=== PATIENT | male | born 1980 | race Caucasian/White ===

== ENCOUNTER 2018-07-21 16:21 | Emergency (ER) | payer OTHER ==
[~2018-07-21] VITALS: Ht 172 cm; Wt 91.6 kg
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
--- NOTE | 2018-07-21 16:51 | NUR ---
ED Nurse Note: pt family requesting pain meds, aware awaiting md williamson
[2018-07-21] MEDS ORDERED: Morphine Sulfate 4mg/ml Inj (IV USE ONLY) IVP ONE ×2 (17:15→18:30)
--- NOTE | 2018-07-21 17:38 | NUR ---
ED Nurse Note: pt with meds given prior to xrays being done at [facility]. labs sent to be held in lab dept. pt tolerates well
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
[2018-07-21] MEDS ORDERED: Bacitracin Oint UD TOPIC ONE ×2 (18:26→18:45)
[2018-07-21 18:28] VITALS: BP 127/73
--- NOTE | 2018-07-21 18:38 | Diagnostic Imaging Report ---
History: PAIN Exam: XR LEFT FOREARM 2 views Comparison: None available FINDINGS: Comminuted displaced impacted intra-articular distal radius fracture with significant-appearing angulation and associated soft tissue deformity. Mild displaced appearing distal ulnar fracture. IMPRESSION: Comminuted displaced impacted intra-articular distal radius fracture with significant-appearing angulation and associated soft tissue deformity. Mild displaced appearing distal ulnar fracture.
--- NOTE | 2018-07-21 18:40 | Diagnostic Imaging Report ---
History: PAIN Exam: XR CXR 1 VIEW Comparison: None available FINDINGS: The lungs are clear. The cardiac and mediastinal contours appear within limits. The visualized osseous structures appear within limits. IMPRESSION: No evidence of acute traumatic injury.
--- NOTE | 2018-07-21 18:56 | NUR ---
ED Nurse Note: pt having repeat xray after splint applied by . good cms remains, pt tolerating well. xraycopies requested or pt to take upon dc home.
[2018-07-21] MEDS ORDERED: IBUPROFEN600 MG ORAL (18:58)
[2018-07-21] MEDS ORDERED: NORCO 5-325 TA1 EACH ORAL (18:58)
--- NOTE | 2018-07-21 19:08 | NUR ---
ED Nurse Note: pt noted to have abrasion to right elbow area also. cleansed and wrapped by medicaid analyst.
[2018-07-21 19:22] VITALS: BP 113/68
--- NOTE | 2018-07-21 19:25 | NUR ---
ER DISCHARGE NOTE: Patient is cleared to be discharged per ERMD, pt is aox4, on room air, with stable vital signs. pt was given dc and prescription instructions, pt was able to verbalize understanding, pt id band and iv site removed without complications. pt is able to ambulate with steady gait. pt took all belongings. pt right elbow and toe dressed. pt left arm splinted and put on sling.
--- NOTE | 2018-07-21 20:26 | Diagnostic Imaging Report ---
EXAM: XR Left Forearm, 2 Views CLINICAL HISTORY: POST-OP TECHNIQUE: Frontal and lateral views of the left forearm. COMPARISON: No relevant prior studies available. FINDINGS: Limitations: Cast material limits evaluation of fine bony detail. Bones/joints: Improved alignment of a comminuted distal radial fracture. Similar alignment of a distal left ulnar metaphyseal fracture. Soft tissues: Diffuse edema. IMPRESSION: Improved alignment of a comminuted distal radial fracture. Similar alignment of a distal left ulnar metaphyseal fracture.
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
== END 2018-07-21 19:25 | disposition home or self-care (01) ==
LOC: EMR 18:00
DX: S52.502A Unspecified fracture of the lower end of left radius, initial encounter for closed fracture (principal); S52.602A Unspecified fracture of lower end of left ulna, initial encounter for closed fracture; M79.602 Pain in left arm; M25.571 Pain in right ankle and joints of right foot; M25.521 Pain in right elbow; S40.812A Abrasion of left upper arm, initial encounter; V19.9XXA Pedal cyclist (driver) (passenger) injured in unspecified traffic accident, initial encounter; Y92.9 Unspecified place or not applicable; E10.9 Type 1 diabetes mellitus without complications
CPT/HCPCS: 29125; 71045; 73090; 82962; 96374; 96375; 96376; 99284; J2270; J2405